=== PATIENT | female | born 1955 | race Caucasian/White ===

== ENCOUNTER → 2019-05-07 07:25 | Outpatient (CLI) | payer OTHER, SELFPAY ==
[2019-05-07 08:56] LABS: Add Manual Diff / Slide Review NO; Basophils Absolute Auto 0 /uL (0-100); Basophils Percent Auto 0.7 % (0-2); Eosinophils Absolute Auto 100 /uL (0-450); Eosinophils Percent Auto 1.4 % (2-4); Hemoglobin 14.7 g/dL (12.0-16.0); Lymphocytes Absolute Auto 1200 /uL (1100-4500); Lymphocytes Percent Auto 22.4 % (25-40); Mean Corpuscular HGB Conc 33.4 % (30-36); Mean Corpuscular Hemoglobin 28.6 PG (26-34); Mean Corpuscular Volume 85.6 fL (80-100); Monocytes Absolute Auto 400 /uL (0-900); Monocytes Percent Auto 7.6 % (3-14); Neutrophils Absolute Auto 3600 /uL (1500-7000); Neutrophils Percent Auto 67.9 % (50-75); Platelet Count 232 X10^3/uL (150-400); Red Blood Cell Count 5.14 X10^6/uL (4.0-5.2); Red Cell Distribution Width 14.6 % (11.6-14.8); White Blood Cell Count 5.3 X10^3/uL (4.5-11.0)
[2019-05-07 09:02] LABS: Alanine Aminotransferase 29 IU/L (<35); Albumin 4.3 g/dL (3.5-5.0); Albumin Globulin Ratio 1.5 (1.0-2.8); Alkaline Phosphatase 91 U/L (38-126); Aspartate Aminotransferase 28 IU/L (14-36); BUN Creatinine Ratio 22.2 (6-22); Bilirubin Total 0.5 mg/dL (0.2-1.3); Blood Urea Nitrogen 20 mg/dL (7-17); Calcium 9.7 mg/dL (8.4-10.2); Carbon Dioxide 25 mmol/L (22-32); Chloride 107 mmol/L (98-107); Estimated Glomerular Filt Rate > 60.0 mL/min (>60); Globulin 2.9 g/dL (1.7-4.1); Glucose 90 mg/dL (80-110); Potassium 4.3 mmol/L (3.4-5.1); Sodium 141 mmol/L (137-145); Total Protein 7.2 g/dL (6.3-8.2)
[2019-05-07 09:03] LABS: Cholesterol 193 mg/dL (140-199); HDL Cholesterol 62 mg/dL (40-60); HEMOLYSIS < 15 (0-50); LDL Cholesterol Calculated 116 mg/dL (<100); Triglycerides 77 mg/dL (35-150)
[2019-05-07 09:18] LABS: Vitamin D 25 Hydroxy (D3) 27.4 ng/mL (30.0-100.0)
== END ==
PROVIDERS: PCP Family Medicine; Visit Provider Family Medicine
DX: Z00.00 Encounter for general adult medical examination without abnormal findings (principal); I10 Essential (primary) hypertension; M85.80 Other specified disorders of bone density and structure, unspecified site
CPT/HCPCS: 36415; 80053; 80061; 82306; 85025

== ENCOUNTER → 2020-07-17 06:57 | Outpatient (CLI) | payer OTHER, SELFPAY ==
[2020-07-17 08:24] LABS: Add Manual Diff / Slide Review NO; Basophils Absolute Auto 0 /uL (0-100); Basophils Percent Auto 0.5 % (0-2); Eosinophils Absolute Auto 100 /uL (0-450); Eosinophils Percent Auto 1.7 % (2-4); Hematocrit 44.7 % (36-46); Hemoglobin 14.4 g/dL (12.0-16.0); Lymphocytes Absolute Auto 1000 /uL (1100-4500); Mean Corpuscular HGB Conc 32.3 % (30-36); Mean Corpuscular Hemoglobin 27.8 PG (26-34); Mean Corpuscular Volume 86.1 fL (80-100); Monocytes Absolute Auto 500 /uL (0-900); Monocytes Percent Auto 10.2 % (3-14); Neutrophils Absolute Auto 3300 /uL (1500-7000); Neutrophils Percent Auto 67.6 % (50-75); Platelet Count 205 X10^3/uL (150-400); Red Blood Cell Count 5.19 X10^6/uL (4.0-5.2); White Blood Cell Count 4.9 X10^3/uL (4.5-11.0)
[2020-07-17 09:02] LABS: Creatinine Urine Random 98.3 mg/dL
[2020-07-17 09:04] LABS: Microalbumin Urine Random < 0.6 mg/dL (0-1.6)
[2020-07-17 09:14] LABS: Vitamin D 25 Hydroxy (D3) 34.2 ng/mL (30.0-100.0)
[2020-07-17 09:23] LABS: Alanine Aminotransferase 19 IU/L (<35); Albumin 4.1 g/dL (3.5-5.0); Albumin Globulin Ratio 1.3 (1.0-2.8); Alkaline Phosphatase 98 U/L (38-126); Aspartate Aminotransferase 26 IU/L (14-36); BUN Creatinine Ratio 23.6 (6-22); Bilirubin Total 0.4 mg/dL (0.2-1.3); Blood Urea Nitrogen 21 mg/dL (7-17); Calcium 9.7 mg/dL (8.4-10.2); Carbon Dioxide 27 mmol/L (22-32); Chloride 106 mmol/L (98-107); Cholesterol 177 mg/dL (140-199); Estimated Glomerular Filt Rate > 60.0 mL/min (>60); Globulin 3.1 g/dL (1.7-4.1); Glucose 92 mg/dL (80-110); HDL Cholesterol 56 mg/dL (40-60); HEMOLYSIS < 15 (0-50); LDL Cholesterol Calculated 102 mg/dL (<100); Sodium 137 mmol/L (137-145); Total Protein 7.2 g/dL (6.3-8.2); Triglycerides 93 mg/dL (35-150)
[2020-07-17 09:29] LABS: Thyroid Stimulating Hormone 1.74 uIU/mL (0.47-4.68)
== END ==
PROVIDERS: PCP Family Medicine; Referring Provider Family Medicine; Visit Provider Family Medicine
DX: E55.9 Vitamin D deficiency, unspecified (principal); E66.9 Obesity, unspecified; E78.5 Hyperlipidemia, unspecified; I10 Essential (primary) hypertension
CPT/HCPCS: 36415; 80053; 80061; 82043; 82306; 82570; 84443; 85025

== ENCOUNTER → 2020-09-09 09:09 | Outpatient (CLI) | payer OTHER, SELFPAY ==
[2020-09-09 10:28] LABS: COVID19 -Nasal RAPID Negative (Negative)
== END ==
PROVIDERS: PCP Family Medicine; Visit Provider Surgery
DX: Z20.822 Contact with and (suspected) exposure to COVID-19 (principal)
CPT/HCPCS: 87635; C9803

== ENCOUNTER 2020-09-10 12:33 | Day surgery (SDC) | payer OTHER, SELFPAY ==
[2020-09-10] VITALS (10 sets, daily range): BP systolic 102–148; BP diastolic 66–86; PULSE 56–73; RESP 12–16; TEMP 37–37.6; O2SAT 95–100; BMI 25.8
[2020-09-10] MEDS: LACTATED RINGERS 1,000 ML 200 ML IV (13:15)
--- NOTE | 2020-09-10 13:41 | PM.HP.1 ---
History of Present Illness History of Present Illness Date Patient Seen: 09/10/20 Time Patient Seen: 13:41 Chief complaint: SDC Narrative: The patient presents for colorectal sreening. She has had previous colonoscopies most recently 2016 she has a personal history of colonic polyps. No personal or family history of colon cancer. On further history denies any recent gastrointestinal symptoms. No nausea, vomiting, abdominal pain, loss of appetite, unexplained weight loss, change in bowel habits, diarrhea, constipation, melena, hematochezia, or bright red blood per rectum. Patient History Medical History Arthritis of foot Colon polyps Hypertension Osteopenia Overweight (BMI 25.0-29.9) Surgical History H/O colonoscopy with polypectomy Family & Social History Social History: household members spouse lives independently Yes Tobacco & Substance use: Smoking Status Never smoker alcohol intake current alcohol intake frequency a few times a month Substance Use Type does not use Meds Home Medications and Allergies Home Medications Medication Instructions Recorded Confirmed Type losartan 50 mg tablet 50 mg PO DAILY #90 tab 04/09/20 09/10/20 Rx cholecalciferol (vitamin D3) 50 25 mcg PO DAILY 07/24/20 09/10/20 History mcg (2,000 unit) capsule magnesium 250 mg tablet 250 mg PO DAILY 07/24/20 09/10/20 History zolpidem 5 mg tablet 5 mg PO BEDTIME PRN #30 tab 07/24/20 09/10/20 Rx sodium,potassium,mag sulfates 17.5 177 ml PO DAILY #354 ml 08/24/20 Rx gram-3.13 gram-1.6 gram oral soln Allergies Allergy/AdvReac Type Severity Reaction Status Date / Time Sulfa (Sulfonamide Allergy Severe rash Verified 09/10/20 12:56 Antibiotics) latex AdvReac Severe rash Verified 09/10/20 12:56 Review of Systems Review of Systems ROS: Yes All systems reviewed with the patient and are negative except as otherwise documented Exam Vital Signs (past 8 hours): - 09/10/20 12:59 Temperature 99.7 F H Pulse Rate 64 Respiratory Rate 14 Blood Pressure 148/86 H Pulse Oximetry 100 Oxygen Delivery Method Room Air Oxygen Flow Rate 0 Narrative Exam Narrative: General-no acute distress, well nourished adult female HEENT-moist mucous membranes, no scleral icterus Neck-supple, no lymphadenopathy Chest- non labored respirations, clear to auscultation bilaterally Cardiac-regular rate no peripheral edema Abdomen-soft, nontender, non distended Extremities-warm, well perfused Neurological-alert and oriented, no focal deficits Assessment & Plan Assessment & Plan narrative: [age] year woman personal history of colonic polyps last colonoscopy 5 years ago here for routine screening.Technical details were discussed. Risks, benefits, alternatives explained. Risks including but not limited to myocardial infarction, aspiration, bleeding, pain, missed lesion, incomplete examination, need for further radiographic studies, colonic perforation, and need for major abdominal surgery were discussed. All questions were answered to their satisfaction, and they are in agreement with this plan.
[2020-09-10] MEDS: MIDAZOLAM 5 MG/5 ML VIAL IV (14:00)
--- NOTE | 2020-09-10 14:34 | PM.OP.ENDO ---
Operative Date/Time/Diagnoses Date of procedure: 09/10/20 Time of procedure: 14:34 Pre-op diagnosis: history of colonic polyps Post-op diagnosis: same Procedure & Clinicians Study performed: colonoscopy Same procedure as scheduled: Yes Indications: 64F personal history of colonic polyps last colonscopy 5 yrs ago Surgeon: Morgan Morrison Procedure Notes Procedure in detail: Medications: Conscious sedation using *5mg IV midazolam and 250mcg IV of fentanyl The history and physical was performed/updated and the patient is ASA class is 2. The procedure was discussed in detail with the patient. Potential risks complications including infection, bleeding, missed diagnosis, perforation, need for surgery, and were explained. Their questions were answered and informed consent was obtained. Patient was brought to the procedure room and placed standard monitoring equipment. The patient's vital signs were monitored continuously throughout the entire procedure. Prior to starting time-out was performed. The patient was placed in the left lateral recumbent position. Procedural sedation was administered. Examination began with a thorough inspection of the perianal area there was no evidence of fissures, fistulae, external hemorrhoids or cutaneous malignancy. The colonoscopy scope was then placed into the anal canal and was advanced to the cecum, which was identified by the ileocecal valve, and the confluence of the taenia. The scope was then slowly withdrawn examining colon thoroughly in all directions, irrigating it of any residual stool. No masses or polyps Extremely tortous colon The patient tolerated the procedure well. They will be discharged once criteria are met. The prep was of good/excellent quality. The withdrawl time was 6 minutes. The sedation time was 42 minutes. Complications: none Impression: Normal colonoscopy Post-procedure Recommendations: Colonscopy in 10 years Disposition: same day surgery
[2020-09-10] MEDS: fentaNYL 250 MCG/5 ML INJ IV (14:35)
== END 2020-09-10 15:30 | disposition home or self-care (01) ==
PROVIDERS: PCP Family Medicine; Referring Provider Surgery; Visit Provider Surgery
PROC: 0DJD8ZZ Inspection of Lower Intestinal Tract, Via Natural or Artificial Opening Endoscopic (ICD-10-PCS; CPT 45378; principal; 2020-09-10 13:45)
DX: Z12.11 Encounter for screening for malignant neoplasm of colon (principal); Z86.010 Personal history of colon polyps; I10 Essential (primary) hypertension; E66.3 Overweight
CPT/HCPCS: 45378; 99152; 99153; J2250; J3010

== ENCOUNTER → 2021-09-14 09:24 | Outpatient (CLI) | payer MEDICARE, OTHER, SELFPAY ==
[2021-09-14 11:33] LABS: Add Manual Diff / Slide Review NO; Basophils Absolute Auto 0 /uL (0-100); Basophils Percent Auto 0.7 % (0-2); Eosinophils Absolute Auto 0 /uL (0-450); Eosinophils Percent Auto 0.6 % (2-4); Hematocrit 45.8 % (36-46); Hemoglobin 15.3 g/dL (12.0-16.0); Lymphocytes Absolute Auto 1000 /uL (1100-4500); Lymphocytes Percent Auto 21.7 % (25-40); Mean Corpuscular HGB Conc 33.3 % (30-36); Mean Corpuscular Hemoglobin 28.6 PG (26-34); Mean Corpuscular Volume 85.8 fL (80-100); Monocytes Absolute Auto 400 /uL (0-900); Monocytes Percent Auto 7.5 % (3-14); Neutrophils Absolute Auto 3400 /uL (1500-7000); Neutrophils Percent Auto 69.5 % (50-75); Platelet Count 203 X10^3/uL (150-400); Red Blood Cell Count 5.34 X10^6/uL (4.0-5.2); Red Cell Distribution Width 14.4 % (11.6-14.8); White Blood Cell Count 4.8 X10^3/uL (4.5-11.0)
[2021-09-14 13:10] LABS: Alanine Aminotransferase 21 IU/L (<35); Albumin 4.7 g/dL (3.5-5.0); Albumin Globulin Ratio 1.5 (1.0-2.8); Alkaline Phosphatase 97 U/L (38-126); Aspartate Aminotransferase 23 IU/L (14-36); BUN Creatinine Ratio 20.2 (6-22); Bilirubin Total 0.6 mg/dL (0.2-1.3); Blood Urea Nitrogen 21 mg/dL (7-17); Carbon Dioxide 27 mmol/L (22-32); Chloride 105 mmol/L (98-107); Cholesterol 216 mg/dL (140-199); Estimated Glomerular Filt Rate 53.2 mL/min (>60); Globulin 3.1 g/dL (1.7-4.1); Glucose 85 mg/dL (80-110); HDL Cholesterol 80 mg/dL (40-60); HEMOLYSIS < 15 (0-50); LDL Cholesterol Calculated 120 mg/dL (<100); Potassium 4.9 mmol/L (3.4-5.1); Sodium 141 mmol/L (137-145); Total Protein 7.8 g/dL (6.3-8.2); Triglycerides 82 mg/dL (35-150)
[2021-09-14 13:26] LABS: Thyroid Stimulating Hormone 2.04 uIU/mL (0.47-4.68)
[2021-09-14 15:06] LABS: Microalbumin Urine Random < 0.6 mg/dL (0-1.6)
== END ==
PROVIDERS: PCP Family Medicine; Referring Provider Family Medicine; Visit Provider Family Medicine
DX: E66.9 Obesity, unspecified (principal); E78.5 Hyperlipidemia, unspecified; I10 Essential (primary) hypertension
CPT/HCPCS: 36415; 80053; 80061; 82043; 82570; 84443; 85025

== ENCOUNTER → 2022-11-09 | Outpatient (CLI) | payer MEDICARE, OTHER, SELFPAY ==
--- NOTE | 2022-11-09 11:05 | DI.MRI.S_ITS ---
PROCEDURE: MR LOWER LEG LT WO CON COMPARISON: None. INDICATIONS: progressive indentation of lateral left lower leg Technique: Multiplanar and multisequence MR images of left lower leg were obtained without contrast. FINDINGS: Bones and joints: [id number] tricompartmental osteoarthritis in left knee is seen. No fracture or dislocation. No marrow edema, cortical erosion or destruction. No periosteal reactions. No suspicious intraosseous lesion. Soft tissues: There is no significant left knee joint effusion. No intra-articular loose bodies. Fiducial marker is placed over posterior lateral aspect of proximal lower leg . Nonspecific subcutaneous soft tissue edema is noted deep to the area of the marker. No muscle or tendon signal abnormalities. No drainable fluid collection or discrete soft tissue mass is seen. IMPRESSION: 1. Nonspecific mild soft tissue edema involving posterior lateral aspect of proximal lower leg at patient's reported area of indentation and pain. No discrete soft tissue mass or drainable fluid collection is noted. 2. No signal abnormality is seen in left lower leg muscles. 3. Left knee joint osteoarthritis. No lower leg fracture or dislocation. No suspicious bony lesions. No Dictated by: Casey De La Fuente M.D. on 11/09/2022 at 13:47 Approved by: Casey De La Fuente M.D. on 11/09/2022 at 13:52
--- NOTE | 2022-11-09 11:54 | DI.DEXA.S_ITS ---
Bone Density Report Name: ADRIENNE HA Age: 67 Sex: Female Ethnicity: White Date of : 1955 Indication: postmenopausal; screening for osteoporosis; parental hip fracture; Referring Provider: ERIC HERNANDEZ Study: Bone densitometry was performed. Exam Date: November 09, 2022 Accession number: [id number] Bone Density: Region BMD T-score Z-score Classification AP Spine(L1-L4) 0.905 -1.3 0.6 Osteopenia Femoral Neck (Left) 0.672 -1.6 0.0 Osteopenia Total Hip (Left) 0.885 -0.5 0.9 Normal Femoral Neck (Right) 0.711 -1.2 0.4 Osteopenia Total Hip (Right) 0.889 -0.4 0.9 Normal Total Hip Mean 0.887 -0.5 0.9 Normal World Health Organization criteria for BMD impression classify patients as: Normal (T-score at or above -1.0), Osteopenia (T-score between -1.0 and -2.5), or Osteoporosis (T-score at or below -2.5). 10-year Fracture Risk(1): Major Osteoporotic Fracture 16% Hip Fracture 1.5% Reported Risk Factors: [place] (), Neck BMD=0.672, BMI=30.5, parental fracture (1) FRAX(R) Version 3.08. Fracture probability calculated for an untreated patient. Fracture probability may be lower if the patient has received treatment. Impression: The patient has low bone mass, based on the Left Femoral Neck T-score. The patient has an estimated ten-year risk of hip fracture of 1.5% and an estimated ten-year risk of major fracture of 16%, based on the WHO FRAX algorithm. The patient has risk factors, including: parental hip fracture. Discussion: BONE DENSITY IS LOW AT ONE OR MORE SKELETAL SITES. This patient's lowest T-score is low at one or more skeletal sites. It meets the World Health Organization's (WHO) criteria for ?low bone mass? (T-score between -1.0 and -2.5). The patient's 10-year risk of fracture as calculated by FRAX is less than the threshold where pharmacological therapy is recommended by the National Osteoporosis Foundation (NOF). However, all treatment decisions require clinical judgment and consideration of individual patient factors, including patient preferences, comorbidities, previous drug use, risk factors not captured in the FRAX model (e.g., frailty, falls, vitamin D deficiency, increased bone turnover, interval significant decline in bone density) and possible under or overestimation of fracture risk by FRAX. The patient should follow a healthful lifestyle (good nutrition with adequate calcium and vitamin D, and appropriate weight-bearing exercise). Follow-Up: Consider repeating this study in 2 to 3 years to reassess this patient's status, or sooner if there is some new clinical indication. Reported by: MACY NOVA MD on 11/09/2022 12:02:00 PM.
== END ==
LOC: MRI 11:05
PROVIDERS: PCP Family Medicine; Referring Provider Family Medicine; Visit Provider Family Medicine
DX: M17.12 Unilateral primary osteoarthritis, left knee (principal); M62.562 Muscle wasting and atrophy, not elsewhere classified, left lower leg; M85.852 Other specified disorders of bone density and structure, left thigh; Z13.820 Encounter for screening for osteoporosis; Z78.0 Asymptomatic menopausal state; M79.89 Other specified soft tissue disorders
CPT/HCPCS: 73718; 77080

== ENCOUNTER → 2023-10-10 07:17 | Outpatient (CLI) | payer MEDICARE, OTHER, SELFPAY ==
[2023-10-10 07:43] LABS: Add Manual Diff / Slide Review NO; Basophils Absolute Auto 0 /uL (0-100); Basophils Percent Auto 0.7 % (0-2); Eosinophils Absolute Auto 100 /uL (0-450); Eosinophils Percent Auto 1.5 % (2-4); Hematocrit 41.8 % (36-46); Hemoglobin 13.8 g/dL (12.0-16.0); Lymphocytes Absolute Auto 1200 /uL (1100-4500); Lymphocytes Percent Auto 24.2 % (25-40); Mean Corpuscular HGB Conc 33.1 % (30-36); Mean Corpuscular Hemoglobin 27.9 PG (26-34); Mean Corpuscular Volume 84.5 fL (80-100); Monocytes Absolute Auto 400 /uL (0-900); Monocytes Percent Auto 8.9 % (3-14); Neutrophils Absolute Auto 3200 /uL (1500-7000); Neutrophils Percent Auto 64.7 % (50-75); Platelet Count 209 X10^3/uL (150-400); Red Blood Cell Count 4.94 X10^6/uL (4.0-5.2)
[2023-10-10 08:22] LABS: Alanine Aminotransferase 22 IU/L (<35); Albumin 3.8 g/dL (3.5-5.0); Albumin Globulin Ratio 1.3 (1.0-2.8); Alkaline Phosphatase 98 U/L (38-126); Aspartate Aminotransferase 22 IU/L (14-36); Bilirubin Total 0.4 mg/dL (0.2-1.3); Blood Urea Nitrogen 21 mg/dL (7-17); Calcium 9.4 mg/dL (8.4-10.2); Carbon Dioxide 24 mmol/L (22-32); Chloride 110 mmol/L (98-107); Cholesterol 171 mg/dL (140-199); Estimated Glomerular Filt Rate > 60 mL/min (>60); Globulin 2.9 g/dL (1.7-4.1); Glucose 91 mg/dL (80-110); HDL Cholesterol 70 mg/dL (40-60); HEMOLYSIS < 15 (0-50); LDL Cholesterol Calculated 85 mg/dL (<100); Potassium 4.3 mmol/L (3.4-5.1); Sodium 139 mmol/L (137-145); Total Protein 6.7 g/dL (6.3-8.2); Triglycerides 80 mg/dL (35-150)
== END ==
LOC: LAB 07:18
PROVIDERS: PCP Family Medicine; Referring Provider Family Medicine; Visit Provider Family Medicine
DX: E78.5 Hyperlipidemia, unspecified (principal); Z00.00 Encounter for general adult medical examination without abnormal findings; I10 Essential (primary) hypertension; E66.3 Overweight
CPT/HCPCS: 36415; 80053; 80061; 85025

== ENCOUNTER → 2024-01-09 08:22 | Outpatient (CLI) | payer MEDICARE, OTHER, SELFPAY ==
[2024-01-09 09:31] LABS: High Sensitivity CRP - Cardiac 5.5 mg/L (1.0-3.0)
[2024-01-09 10:23] LABS: Creatinine Urine Random 38.15 mg/dL
[2024-01-09 10:33] LABS: Microalbumin Urine Random < 0.6 mg/dL (0-1.6)
== END ==
PROVIDERS: PCP Family Medicine; Referring Provider Family Medicine; Visit Provider Family Medicine
DX: E78.5 Hyperlipidemia, unspecified (principal); I10 Essential (primary) hypertension
CPT/HCPCS: 36415; 82043; 82570; 86140

== ENCOUNTER 2024-01-19 05:42 | Emergency (ER) | payer MEDICARE, OTHER, SELFPAY ==
[2024-01-19 05:57] VITALS: BP 140/96; PULSE 79; RESP 18; TEMP 36.8; O2SAT 98; BMI 29.4
--- NOTE | 2024-01-19 06:04 | ED.SKABFB ---
HPI - Skin/Abscess/Foreign Bdy General Chief complaint: Wound/Laceration Stated complaint: cut rt hand getting infected Time Seen by Provider: 01/19/24 05:52 Source: patient Mode of arrival: Ambulatory History of Present Illness HPI narrative: 68-year-old female presents for wound evaluation. Patient had cut on her right palm between her index and middle finger. Wound was sutured on 01/15/2024. Patient returned to the walk-in clinic on 01/17 concerned for redness around the wound and itching. At that time the irritation was felt to be secondary to allergic reaction from the bandage patient had applied to the wound, however added precaution a prescription for antibiotics was sent to the pharmacy. Patient has been taking the antibiotics, both concerned because the redness seems to be swelling to the dorsum of her hand. Patient is right-hand dominant and states that she was not want to let an unchecked infection persist over the weekend. Related Data Home Medications Medication Instructions Recorded Confirmed cholecalciferol (vitamin D3) 50 25 mcg PO DAILY 07/24/20 01/18/24 mcg (2,000 unit) capsule magnesium 250 mg tablet 250 mg PO DAILY 07/24/20 01/18/24 vitamins A,C,E-hofr-lmqssc 4,296 1 cap PO BID 11/06/23 01/18/24 mcg-226 mg-90 mg capsule (PreserVision AREDS) Previous Rx's Medication Instructions Recorded losartan 50 mg tablet 50 mg PO DAILY #90 tabs 11/29/23 tirzepatide 5 mg/0.5 mL 5 mg (0.5 mL) SUBCUT QWEEK #2 mL 01/11/24 subcutaneous pen injector cephalexin 500 mg capsule 500 mg PO Q8H suture site 01/18/24 infection 5 days #15 caps cephalexin 500 mg capsule 500 mg PO QID #5 caps 01/19/24 Allergies Allergy/AdvReac Type Severity Reaction Status Date / Time Sulfa (Sulfonamide Allergy Severe rash Verified 01/18/24 13:06 Antibiotics) latex AdvReac Severe rash Verified 01/18/24 13:06 Patient History Medical History Overweight (BMI 25.0-29.9) Colon polyps Hyperlipidemia Osteopenia Arthritis of foot Hypertension Surgical History H/O colonoscopy with polypectomy Social History marital status: household members: spouse lives independently: Yes occupational status: other (retired) Smoking Status: Never smoker alcohol intake: current (1 drink per week ) substance use type: does not use Smoking Status: Never smoker alcohol intake frequency: a few times a month Substance Use Type: does not use Exam Initial Vital Signs Initial Vital Signs: Vital Signs Temperature 98.3 F 01/19/24 05:57 Pulse Rate 79 01/19/24 05:57 Respiratory Rate 18 01/19/24 05:57 Blood Pressure 140/96 H 01/19/24 05:57 Pulse Oximetry 98 01/19/24 05:57 Oxygen Delivery Method Room Air 01/19/24 05:57 Const: Awake, alert, no acute distress, nontoxic appearing Skin: Sutures in place on palm of hand, clean, dry, intact, minimal surrounding erythema, no excessive warmth, no fluctuance, no induration Neuro: AO x3, CN II-XII grossly intact, moves all extremities Course Vital Signs Vital signs: Vital Signs - 8 hr 01/19/24 05:57 Temperature 98.3 F Pulse Rate 79 Respiratory Rate 18 Blood Pressure 140/96 H Pulse Oximetry 98 Oxygen Delivery Method Room Air MDM - Skin/Abscess/Foreign Bdy MDM Narrative Medical decision making narrative: Patient presenting for wound check. Sutures are clean, dry, intact. There is some erythema between the patient's finger as well as proximally 2 cm diameter area of erythema on both the palmar and dorsal aspect of the patient's right hand, however there was no excessive warmth, no fluctuance, no induration. Point of care ultrasound performed by myself shows no obvious cobblestoning or abscess. Patient's symptoms less likely to be infectious in nature, more likely to be allergic. Out of precaution since it was the weekend and patient is right-hand dominant she was counseled to complete her antibiotic course as prescribed. Otherwise she can continue normal wound care. Patient is sent home on t.i.d. Keflex. Appropriate dosing for cellulitis is q.i.d. Keflex. Additional antibiotics sent to pharmacy for complete antibiotic course Discharge Plan Departure Patient Disposition: Home Clinical Impression: Encounter for re-check of laceration wound Instructions: DI for Laceration Repair Activity Restrictions/Additional Instructions: Keep your stitches in for another 2-3 days. Change your Keflex dosing from 3 times daily to 4 times daily. Finish all antibiotics as prescribed even if you feel improved. Prescriptions: New cephalexin 500 mg capsule 500 mg PO QID Qty: 5 0RF Rx Instructions: aware of previous rx No Action cholecalciferol (vitamin D3) 50 mcg (2,000 unit) capsule 25 mcg PO DAILY magnesium 250 mg tablet 250 mg PO DAILY cephalexin 500 mg capsule 500 mg PO Q8H 5 Days Qty: 15 0RF losartan 50 mg tablet 50 mg PO DAILY Qty: 90 1RF tirzepatide 5 mg/0.5 mL pen injector 5 mg SUBCUT QWEEK Qty: 2 1RF PreserVision AREDS 4,296 mcg-226 mg-90 mg capsule 1 cap PO BID Referrals: Gloria Douglas DO [Primary Care Provider] - Stand Alone Forms: Patient Portal/API
== END 2024-01-19 06:54 | disposition home or self-care (01) ==
PROVIDERS: Emergency Provider Emergency Medicine; PCP Family Medicine
DX: S61.411D Laceration without foreign body of right hand, subsequent encounter (principal)
CPT/HCPCS: 99281

== ENCOUNTER → 2025-01-09 06:58 | Outpatient (CLI) | payer MEDICARE, OTHER, SELFPAY ==
[2025-01-09 08:12] LABS: Add Manual Diff / Slide Review NO; Hematocrit 41.3 % (36-46); Hemoglobin 14.0 g/dL (12.0-16.0); Lymphocytes Absolute Auto 800 /uL (1100-4500); Mean Corpuscular HGB Conc 33.8 % (30-36); Mean Corpuscular Hemoglobin 29.3 PG (26-34); Mean Corpuscular Volume 86.6 fL (80-100); Platelet Count 187 X10^3/uL (150-400)
[2025-01-09 08:32] LABS: Alanine Aminotransferase 27 IU/L (<35); Albumin 3.7 g/dL (3.5-5.0); Albumin Globulin Ratio 1.5 (1.0-2.8); Alkaline Phosphatase 90 U/L (38-126); Blood Urea Nitrogen 18 mg/dL (7-17); Calcium 9.4 mg/dL (8.4-10.2); Carbon Dioxide 23 mmol/L (22-32); Chloride 106 mmol/L (98-107); Cholesterol 159 mg/dL (140-199); Estimated Glomerular Filt Rate > 60 mL/min (>60); Globulin 2.5 g/dL (1.7-4.1); Glucose 81 mg/dL (70-99); HDL Cholesterol 61 mg/dL (40-60); HEMOLYSIS < 15 (0-50); Potassium 4.6 mmol/L (3.4-5.1); Sodium 134 mmol/L (137-145); Total Protein 6.2 g/dL (6.3-8.2); Triglycerides 64 mg/dL (35-150)
[2025-01-10 04:39] LABS: CRP, High Sensitivity 2.16 mg/L (0.00-3.00)
== END ==
PROVIDERS: PCP Family Medicine; Referring Provider Family Medicine; Visit Provider Family Medicine
DX: I10 Essential (primary) hypertension (principal); E78.5 Hyperlipidemia, unspecified
CPT/HCPCS: 36415; 80053; 80061; 85025; 86140